=== PATIENT | male | born 1995 | race Caucasian/White ===

== ENCOUNTER 2016-12-01 18:37 | Emergency (ER) | payer OTHER ==
[~2016-12-01] VITALS: Ht 160 cm; Wt 80.5 kg
[2016-12-01 18:51] VITALS: Ht 160 cm; Wt 80.5 kg
--- NOTE | 2016-12-01 21:22 | RADRPT ---
PROCEDURE: XR Chest. CLINICAL INDICATION: Chest pain. TECHNIQUE: Single frontal view. COMPARISON: None. FINDINGS: The lungs are clear. The heart size is normal. There is no pleural effusion. There is no pneumothorax. IMPRESSION: 1. Normal chest radiograph. RPTAT: QQ .Arpan Bills MD, Date Time Electronically viewed and signed by .Arpan Bills MD, on 12/01/2016 21:22 .R/
[2016-12-01] MEDS ORDERED: IBUP-1542 PO (21:26)
--- NOTE | 2016-12-01 21:29 | ERD ---
ER Documentation Chief Complaint Date/Time DATE: 12/01/16 TIME: 21:27 Chief Complaint chest wall pain since 2 hours ago HPI 21-year-old male presents with right-sided chest wall pain that began about 4: 00 this afternoon. He denies any trauma. He states it is sharp and he has reproducible pain when he pushes on his chest. Denies any shortness of breath or palpitations or diaphoresis. No cough or unplanned weight loss or night sweats. He has not taken any medication for pain. He has no cardiac past medical history. He does not drink smoke or use drugs. ROS All systems reviewed and are negative except as per history of present illness. Medications Home Meds Active Scripts Ibuprofen* (Motrin*) 600 Mg Tab, 600 MG PO Q6, #30 TAB Prov:YOVANNY TORRE PA-C 12/01/16 Allergies Allergies: Coded Allergies: No Known Allergy (Unverified , 12/01/16) PMhx/Soc History of Surgery: No Anesthesia Reaction: No Hx Neurological Disorder: No Hx Respiratory Disorders: No Hx Cardiac Disorders: No Hx Psychiatric Problems: No Hx Miscellaneous Medical Probl: No Hx Alcohol Use: No Hx Substance Use: No Hx Tobacco Use: No Smoking Status: Never smoker FmHx Family History: No diabetes Physical Exam Vitals Vital Signs Date Time Temp Pulse Resp B/P Pulse Ox O2 Delivery O2 Flow Rate FiO2 12/01/16 18:51 97.8 88 20 141/90 98 Physical Exam INITIAL VITAL SIGNS: Reviewed by me GENERAL: Awake, alert and oriented x 4, well appearing, nontoxic, speaking in full sentences. No acute distress HEAD: Atraumatic RESPIRATORY: Clear to auscultation bilaterally. Symmetric chest wall rise. No wheezing or rales. No accessory muscle use. CV: Regular rate and rhythm. No murmurs, rubs, or gallops. ABDOMEN: Soft, non-distended. Nontender. Negative [place]. Negative McBurneys point tenderness. No CVA tenderness bilaterally. No guarding. No rebound. : Deffered. EXTREMITIES: No clubbing or cyanosis. No edema. Moving all extremities normally. Procedures/MDM 21-year-old presents with chest wall pain. The differential diagnosis includes but is not limited to acute coronary syndrome acute myocardial infarction, pericarditis, pulmonary embolism, aortic dissection, pneumonia, pleural effusion , pneumothorax, GERD, chest wall pain, and others. Vital signs are normal Patients is alert, oriented, well appearing, and in no distress with normal vital signs. There is no fever, tachycardia, or tachypnea. EKG shows no evidence of ST elevation or acute ischemic changes. Chest x-ray negative. This is most likely musculoskeletal versus pleuritic versus anxiety. He is discharged with Motrin. Patient counseled regarding my diagnostic impression and care plan. Prior to discharge all questions answered. Pt agrees with treatment plan and understands strict return precautions. Pt is instructed to follow up with primary care provider within 24-48 hours. Precautionary instructions provided including instructions to return to the ER if not improving or for any worsening or changing symptoms or concerns. Departure Diagnosis: Primary Impression: Chest wall pain Condition: Stable Patient Instructions: Chest Pain, Noncardiac Additional Instructions: Call your primary care doctor TOMORROW for an appointment during the next 1-2 days.See the doctor sooner or return here if your condition worsens before your appointment time. YOVANNY TORRE PA-C Dec 01, 2016 21:29
== END 2016-12-01 21:33 | disposition home or self-care (01) ==
LOC: FTE 18:37
DX: R07.89 Other chest pain (principal)
CPT/HCPCS: 71010; 93005